=== PATIENT | female | born 1960 | race Caucasian/White ===

== ENCOUNTER 2019-01-16 13:11 | Emergency (ER) | payer MEDICARE, MEDICAID ==
[~2019-01-16] VITALS: Ht 167.6 cm; Wt 76.3 kg
[2019-01-16 13:25] VITALS: BP 111/77
[2019-01-16] MEDS ORDERED: OXYcodone/APAP 10/325MG TABLET ONE (13:50)
[2019-01-16] MEDS ORDERED: OXYcodone/APAP 10/325MG TABLET PO ONE (14:00)
== END 2019-01-16 13:57 | disposition home or self-care (01) ==
LOC: ED 13:40
DX: R00.1 Bradycardia, unspecified (principal); Z76.0 Encounter for issue of repeat prescription; F43.10 Post-traumatic stress disorder, unspecified; F17.210 Nicotine dependence, cigarettes, uncomplicated; Z95.0 Presence of cardiac pacemaker
CPT/HCPCS: 99282

== ENCOUNTER 2019-01-21 04:51 | Inpatient (IN) | payer MEDICARE, MEDICAID ==
[~2019-01-21] VITALS: Ht 167.6 cm; Wt 83.0 kg
[2019-01-21] MEDS ORDERED: HYDROmorphone 1 MG/ML, 1ML VIAL ONE (05:28)
[2019-01-21] MEDS ORDERED: ONDANSETRON 2MG/ML, 2ML ONE (05:28)
[2019-01-21] MEDS ORDERED: HYDROmorphone 1 MG/ML, 1ML INJ IV ONE (05:30)
[2019-01-21] MEDS ORDERED: SODIUM CHLORIDE FLUSH 10ML SYR IVF ONE (05:30)
[2019-01-21] MEDS ORDERED: ONDANSETRON 2MG/ML, 2ML IVPush ONE (05:30)
[2019-01-21 05:35] LABS: BASOPHILS # (AUTO) 0.04 x10^3/uL (0-0.1); BASOPHILS % (AUTO) 1 % (0-1); EOSINOPHILS # (AUTO) 0.16 x10^3/uL (0-0.4); EOSINOPHILS % (AUTO) 3 % (1-7); LYMPHOCYTES # (AUTO) 1.29 x10^3/uL (1-3.4); LYMPHOCYTES % (AUTO) 24 % (22-44); MD NO; MEAN CORPUSCULAR HEMOGLOBIN 30.7 pg (27.0-34.8); MEAN CORPUSCULAR HGB CONC 33.2 g/dL (32.4-35.8); MEAN CORPUSCULAR VOLUME 92.5 fL (80-100); MEAN PLATELET VOLUME 9.2 fL (7.4-10.4); MONOCYTES # (AUTO) 0.36 x10^3/uL (0.2-0.8); MONOCYTES % (AUTO) 7 % (2-9); NEUTROPHILS # (AUTO) 3.52 x10^3/uL (1.8-6.8); NEUTROPHILS % (AUTO) 66 % (42-75); PLATELET COUNT 136 x10^3/uL (130-400); RED BLOOD COUNT 4.79 x10^6/uL (3.82-5.3)
[2019-01-21 05:45] LABS: ALANINE AMINOTRANSFERASE 23 U/L (12-78); ALBUMIN 3.8 g/dL (3.4-5.0); ANION GAP 2 mmol/L (5-15); CALCIUM 9.1 mg/dL (8.5-10.1); CHLORIDE 107 mmol/L (98-107); CREATININE 1.03 mg/dL (0.55-1.02)
[2019-01-21 05:49] LABS: ALKALINE PHOSPHATASE 62 U/L (45-117); BILIRUBIN,TOTAL 0.6 mg/dL (0.2-1.0); TOTAL PROTEIN 7.9 g/dL (6.4-8.2); TROPONIN I 0.077 ng/mL (0.000-0.045)
--- NOTE | 2019-01-21 06:13 | NUR ---
PT REQUESTING MORE "RELIEF MEDICINE". PA INFORMED.
[2019-01-21] MEDS ORDERED: ASPIRIN 81 MG TABLET CHEW PO ONE (06:30)
[2019-01-21] MEDS ORDERED: MORPHINE SULFATE 4 MG/ML, 1ML IVPush ONE (06:30)
[2019-01-21] MEDS ORDERED: ASPIRIN 81 MG TABLET CHEW ONE (06:37)
[2019-01-21] MEDS ORDERED: MORPHINE SULFATE 4 MG/ML, 1ML ONE (06:37)
--- NOTE | 2019-01-21 06:41 | NUR ---
PT MEDICATED PER MAR. AWAITING ADMIT BED
[2019-01-21] MEDS ORDERED: THC PO (06:42)
[2019-01-21] MEDS ORDERED: CLON1TAB PO (06:42)
[2019-01-21] MEDS ORDERED: METH40TA3 PO (06:42)
--- NOTE | 2019-01-21 06:52 | NUR ---
REPORT RECEIVED, CARE ASSUMED
--- NOTE | 2019-01-21 07:33 | NUR ---
REPORT TO RUDI HAYWOOD. POC DISCUSSED.
[2019-01-21] MEDS ORDERED: ONDANSETRON ODT 4 MG PO PRN (08:30)
[2019-01-21] MEDS ORDERED: LACTATED RINGERS 1,000 ML IV SCH (08:30)
[2019-01-21] MEDS ORDERED: ACETAMINOPHEN 325 MG TABLET PO PRN ×2 (08:30→14:30)
[2019-01-21] MEDS ORDERED: ONDANSETRON 2MG/ML, 2ML IVPush PRN (08:30)
[2019-01-21 08:40] VITALS: BP 119/77
[2019-01-21] MEDS: METHADONE INTENSOL 10 MG/ML ORAL CONC PO SCH (10:13)
[2019-01-21] MEDS ORDERED: SODIUM CHLORIDE 0.9% 1,000 ML IV SCH (12:00)
[2019-01-21] MEDS ORDERED: MIDAZOLAM 1 MG/ML, 5ML ONE (12:57)
[2019-01-21] MEDS ORDERED: LIDOCAINE 2%, 20ML ONE (12:57)
[2019-01-21] MEDS ORDERED: FENTANYL PF 100 MCG/2ML ONE (12:57)
[2019-01-21] MEDS ORDERED: VANCOMYCIN 500 MG ONE ×2 (12:58→13:03)
[2019-01-21] MEDS ORDERED: VANCOMYCIN PMX 1GM/200ML 200 ML ONE (12:58)
[2019-01-21] MEDS ORDERED: HOLD MEDICATION MC PRN (14:30)
[2019-01-21 15:07] VITALS: BP 110/57
[2019-01-21] MEDS: HYDROcodone/APAP 5/325 TABLET PO PRN (17:51)
[2019-01-21 20:35] VITALS: BP 95/61
[2019-01-21] MEDS ORDERED: SIMVASTATIN 40 MG TABLET PO SCH (21:00)
[2019-01-21] MEDS: SODIUM CHLORIDE FLUSH 10ML SYR IVF SCH (21:53)
[2019-01-22] MEDS: HYDROcodone/APAP 5/325 TABLET PO PRN ×2 (00:28→05:23)
[2019-01-22] MEDS ORDERED: VANCOMYCIN PMX 1GM/200ML 200 ML IVPB ONE (01:00)
[2019-01-22 01:54] VITALS: BP 93/68
[2019-01-22 05:25] LABS: BASOPHILS # (AUTO) 0.03 x10^3/uL (0-0.1); BASOPHILS % (AUTO) 1 % (0-1); EOSINOPHILS # (AUTO) 0.21 x10^3/uL (0-0.4); EOSINOPHILS % (AUTO) 4 % (1-7); LYMPHOCYTES # (AUTO) 1.51 x10^3/uL (1-3.4); LYMPHOCYTES % (AUTO) 29 % (22-44); MD NO; MEAN CORPUSCULAR HEMOGLOBIN 30.8 pg (27.0-34.8); MEAN CORPUSCULAR HGB CONC 33.6 g/dL (32.4-35.8); MEAN CORPUSCULAR VOLUME 91.7 fL (80-100); MEAN PLATELET VOLUME 9.4 fL (7.4-10.4); MONOCYTES # (AUTO) 0.43 x10^3/uL (0.2-0.8); MONOCYTES % (AUTO) 8 % (2-9); NEUTROPHILS # (AUTO) 3.06 x10^3/uL (1.8-6.8); NEUTROPHILS % (AUTO) 59 % (42-75); PLATELET COUNT 138 x10^3/uL (130-400); RED BLOOD COUNT 4.45 x10^6/uL (3.82-5.3); RED CELL DISTRIBUTION WIDTH 13.9 % (9.6-15.2)
[2019-01-22 05:35] LABS: ANION GAP 4 mmol/L (5-15); CALCIUM 8.7 mg/dL (8.5-10.1); CHLORIDE 108 mmol/L (98-107)
[2019-01-22 05:37] LABS: CREATININE 0.87 mg/dL (0.55-1.02)
[2019-01-22 07:35] VITALS: BP 124/76
[2019-01-22] MEDS: SODIUM CHLORIDE FLUSH 10ML SYR IVF SCH (08:32)
[2019-01-22] MEDS: METHADONE INTENSOL 10 MG/ML ORAL CONC PO SCH (08:32)
[2019-01-22] MEDS ORDERED: SIMV40TA3 PO (08:54)
== END 2019-01-22 10:36 | disposition home or self-care (01) | DRG 260 ==
LOC: ED 05:50 → EDIP 06:18 → 5SO 07:57 → DCLOUNGE 01-22 10:28
PROVIDERS: ADMIT Family Medicine; ATTEND Internal Medicine
PROC: 02WA3MZ Revision of Cardiac Lead in Heart, Percutaneous Approach (ICD-10-PCS; principal; 2019-01-21)
PROC: 0JWT3PZ Revision of Cardiac Rhythm Related Device in Trunk Subcutaneous Tissue and Fascia, Percutaneous Approach (ICD-10-PCS; 2019-01-21)
DX: T82.120A Displacement of cardiac electrode, initial encounter (principal); N17.0 Acute kidney failure with tubular necrosis; E78.5 Hyperlipidemia, unspecified; F12.90 Cannabis use, unspecified, uncomplicated; F17.200 Nicotine dependence, unspecified, uncomplicated; F43.10 Post-traumatic stress disorder, unspecified; G89.4 Chronic pain syndrome; Z79.891 Long term (current) use of opiate analgesic; Z82.49 Family history of ischemic heart disease and other diseases of the circulatory system; Z95.0 Presence of cardiac pacemaker; Z88.0 Allergy status to penicillin; Y83.1 Surgical operation with implant of artificial internal device as the cause of abnormal reaction of the patient, or of later complication, without mention of misadventure at the time of the procedure; Y71.2 Prosthetic and other implants, materials and accessory cardiovascular devices associated with adverse incidents
CPT/HCPCS: 33215; 36415; 71045; 80048; 80053; 84484; 85025; 93005; 93308; 93321; 93325; 96374; 96375; 99156; 99157; 99285; G0378; J1170; J2250; J2405; J3010; J3370; J2270; J7030; J7120

== ENCOUNTER 2019-02-12 10:34 | Emergency (ER) | payer MEDICARE, MEDICAID ==
[~2019-02-12] VITALS: Ht 167.6 cm; Wt 74.5 kg
[~2019-02-12 10:34] MED LIST: CLON1TAB PO; METH40TA3 PO; SIMV40TA3 PO; THC PO
[2019-02-12 10:37] VITALS: BP 140/81
--- NOTE | 2019-02-12 11:14 | NUR ---
PT LEFT AMA DUE TO "ANXIETY". SHE SAID SHE WILL GO TO [facility]
== END 2019-02-12 11:16 | disposition left against medical advice (07) ==
LOC: ED 11:10
DX: F41.9 Anxiety disorder, unspecified (principal); F43.10 Post-traumatic stress disorder, unspecified; F17.200 Nicotine dependence, unspecified, uncomplicated; Z76.0 Encounter for issue of repeat prescription; Z95.0 Presence of cardiac pacemaker
CPT/HCPCS: 93005; 99283

== ENCOUNTER 2019-02-25 13:35 | Emergency (ER) | payer MEDICARE, MEDICAID ==
[~2019-02-25] VITALS: Ht 167.6 cm; Wt 73.0 kg
--- NOTE | 2019-02-25 14:41 | NUR ---
TO LUCY FROM LOBBY
--- NOTE | 2019-02-25 14:51 | NUR ---
THIS IS A 58 YO FEMALE COMING IN FOR HEADACHE, EXHAUSTION, LEFT SIDED PAIN WITH CRAMPING AND PAIN LOCATED IN LEFT ARMPIT AFTER PACEMAKER PLACED 3 WEEKS AGO, C/O SOB WITH EXERTION. DENIES LIGHTHEADED OR DIZZINESS, BUT IS CONFUSED MORE THAN HER NORM PER PATIENT STATEMENT. PATIENT PLACED ON CARDIAC MONTIOR, PACED BEAT NOTED AT 61 BPM. PATIENT STATES "IT WS PLACED FOR BRADYCARDIA". CONTINUOUS SPO2 AT 96%, CYCLE BP Q1HR. CALL LIGHT IN REACH. DENIES NEEDS AT THIS TIME.
[2019-02-25 15:23] LABS: BASOPHILS # (AUTO) 0.04 x10^3/uL (0-0.1); BASOPHILS % (AUTO) 1 % (0-1); EOSINOPHILS % (AUTO) 3 % (1-7); LYMPHOCYTES # (AUTO) 2.24 x10^3/uL (1-3.4); LYMPHOCYTES % (AUTO) 39 % (22-44); MD NO; MEAN CORPUSCULAR HEMOGLOBIN 30.9 pg (27.0-34.8); MEAN CORPUSCULAR HGB CONC 33.2 g/dL (32.4-35.8); MEAN PLATELET VOLUME 9.6 fL (7.4-10.4); MONOCYTES # (AUTO) 0.36 x10^3/uL (0.2-0.8); MONOCYTES % (AUTO) 6 % (2-9); NEUTROPHILS % (AUTO) 51 % (42-75); PLATELET COUNT 152 x10^3/uL (130-400); RED BLOOD COUNT 4.32 x10^6/uL (3.82-5.3); RED CELL DISTRIBUTION WIDTH 13.5 % (9.6-15.2)
[2019-02-25 15:28] LABS: ALANINE AMINOTRANSFERASE 21 U/L (12-78); ALBUMIN 3.6 g/dL (3.4-5.0); ANION GAP 3 mmol/L (5-15); CALCIUM 8.6 mg/dL (8.5-10.1); CHLORIDE 111 mmol/L (98-107); CREATININE 0.91 mg/dL (0.55-1.02)
[2019-02-25] MEDS ORDERED: ACETAMINOPHEN 500 MG TABLET PO ONE (15:30)
[2019-02-25 15:32] LABS: ALKALINE PHOSPHATASE 66 U/L (45-117); BILIRUBIN,TOTAL 0.3 mg/dL (0.2-1.0); TOTAL PROTEIN 7.2 g/dL (6.4-8.2); TROPONIN I < 0.015 ng/mL (0.000-0.045)
[2019-02-25 15:47] LABS: MICROSCOPIC NOT IND
[2019-02-25 15:47] LABS: INTERNATIONAL NORMALIZED RATIO 1.01 (0.93-1.1); PROTHROMBIN TIME 10.6 Seconds (9.6-11.5)
[2019-02-25 15:55] LABS: CULTURE INDICATED? NO
--- NOTE | 2019-02-25 16:00 | NUR ---
PATIENT RESTING, RESPIRATIONS EVEN AND UNLABORED, CALL LIGHT IN REACH, ALL MONITORING IN PLEACE, DENIES NEEDS AT THIS TIME.
[2019-02-25 16:07] VITALS: BP 124/67
--- NOTE | 2019-02-25 16:40 | NUR ---
PATIENT MEDICATED PER EMAR, TOLERATED WELL.
[2019-02-25] MEDS ORDERED: ACETAMINOPHEN 500 MG TABLET ONE (16:42)
--- NOTE | 2019-02-25 17:18 | NUR ---
PATIENT REFUSED TO WAIT FOR DISCHARGE PAPERWORK, LEFT WITHOUT PAPERS.
== END 2019-02-25 17:28 | disposition home or self-care (01) ==
LOC: ED 17:26
DX: R07.89 Other chest pain (principal); R51 Headache; M54.2 Cervicalgia; R06.02 Shortness of breath; F17.200 Nicotine dependence, unspecified, uncomplicated; Z95.0 Presence of cardiac pacemaker
CPT/HCPCS: 36415; 71045; 80053; 81003; 83880; 84484; 85025; 85610; 85730; 93005; 99284

== ENCOUNTER 2019-05-06 10:56 | Emergency (ER) | payer MEDICAID, MEDICARE ==
[~2019-05-06] VITALS: Ht 167.6 cm; Wt 76.0 kg
[~2019-05-06 10:56] MED LIST changes: +SIMV40TA20 PO; -SIMV40TA3 PO
[2019-05-06 11:56] VITALS: BP 100/52
[2019-05-06] MEDS ORDERED: ACETAMINOPHEN 325 MG TABLET ONE (12:10)
[2019-05-06] MEDS ORDERED: ACETAMINOPHEN 325 MG TABLET PO ONE (12:30)
[2019-05-06 12:34] LABS: RAPID INFLUENZA A Negative (Negative); RAPID INFLUENZA B Negative (Negative)
== END 2019-05-06 14:12 | disposition home or self-care (01) ==
LOC: ED 13:45
DX: J02.0 Streptococcal pharyngitis (principal); F17.200 Nicotine dependence, unspecified, uncomplicated; R00.1 Bradycardia, unspecified; Z95.0 Presence of cardiac pacemaker
CPT/HCPCS: 87400; 87880; 99283

== ENCOUNTER 2020-01-22 09:03 | Emergency (ER) | payer MEDICARE, MEDICAID ==
[~2020-01-22] VITALS: Ht 167.6 cm; Wt 87.6 kg
--- NOTE | 2020-01-22 09:37 | NUR ---
PT IN BED, VSS, SR ON MONITOR,
[2020-01-22 10:11] LABS: BASOPHILS % (AUTO) 1 % (0-1); EOSINOPHILS % (AUTO) 3 % (1-7); LYMPHOCYTES % (AUTO) 32 % (22-44); MEAN CORPUSCULAR HGB CONC 33.9 g/dL (32.4-35.8); MEAN PLATELET VOLUME 9.7 fL (7.4-10.4); MONOCYTES % (AUTO) 7 % (2-9); NEUTROPHILS % (AUTO) 58 % (42-75); PLATELET COUNT 155 x10^3/uL (130-400); RED CELL DISTRIBUTION WIDTH 13.4 % (9.6-15.2)
[2020-01-22 10:13] LABS: ALBUMIN 3.7 g/dL (3.4-5.0); ANION GAP 6 mmol/L (5-15); CALCIUM 8.9 mg/dL (8.5-10.1); CHLORIDE 112 mmol/L (98-107)
[2020-01-22 10:15] LABS: MD NO
[2020-01-22 10:26] LABS: TROPONIN I 0.027 ng/mL (0.000-0.045)
[2020-01-22 11:22] VITALS: BP 127/70
== END 2020-01-22 11:32 | disposition home or self-care (01) ==
LOC: ED 09:47
DX: J44.1 Chronic obstructive pulmonary disease with (acute) exacerbation (principal); F41.1 Generalized anxiety disorder; I50.9 Heart failure, unspecified; R00.2 Palpitations; R07.9 Chest pain, unspecified; F17.200 Nicotine dependence, unspecified, uncomplicated; Z95.0 Presence of cardiac pacemaker
CPT/HCPCS: 36415; 71045; 80048; 82040; 83880; 84443; 84484; 85025; 93005; 99285

== ENCOUNTER 2020-01-25 15:11 | Emergency (ER) | payer MEDICARE, MEDICAID ==
[~2020-01-25] VITALS: Ht 167.6 cm; Wt 85.6 kg
--- NOTE | 2020-01-25 15:44 | NUR ---
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
[2020-01-25] MEDS ORDERED: ASPIRIN 81 MG TABLET CHEW PO ONE (16:00)
[2020-01-25 16:24] LABS: BASOPHILS % (AUTO) 1 % (0-1); EOSINOPHILS % (AUTO) 2 % (1-7); LYMPHOCYTES % (AUTO) 35 % (22-44); MEAN CORPUSCULAR HEMOGLOBIN 30.1 pg (27.0-34.8); MEAN PLATELET VOLUME 9.6 fL (7.4-10.4); MONOCYTES % (AUTO) 7 % (2-9); NEUTROPHILS % (AUTO) 55 % (42-75); PLATELET COUNT 170 x10^3/uL (130-400); RED BLOOD COUNT 4.94 x10^6/uL (3.82-5.3); RED CELL DISTRIBUTION WIDTH 13.4 % (9.6-15.2)
[2020-01-25 16:27] LABS: ALANINE AMINOTRANSFERASE 20 U/L (12-78); ALBUMIN 3.8 g/dL (3.4-5.0); ANION GAP 5 mmol/L (5-15); CALCIUM 8.6 mg/dL (8.5-10.1); CHLORIDE 105 mmol/L (98-107); CREATININE 1.12 mg/dL (0.55-1.02)
[2020-01-25 16:31] LABS: ALKALINE PHOSPHATASE 68 U/L (45-117); BILIRUBIN,TOTAL 0.5 mg/dL (0.2-1.0); TOTAL PROTEIN 7.7 g/dL (6.4-8.2); TROPONIN I < 0.015 ng/mL (0.000-0.045)
[2020-01-25 16:34] LABS: MD NO
--- NOTE | 2020-01-25 16:34 | NUR ---
CONTACT WITH PT, 59 YR OLD FEMALE HERE WITH C/O "I'M HAVING SOME HEART PAIN. I CAME IN ON THURSDAY, BECAUSE I THOUGHT MY PACEMAKER NEEDED TWEEKED. THEY FOUND SOME WATER ON MY HEART. THEY GAVE ME SOME LASIX, BUT ITS NOT GETTING BETTER." PT PLACED ON MONITOR, SR PER MONITOR, AUTO BP AND PULSE OX. PT STATES "NOT SLEEPING WELL, HAVE TO SLEEP SITTING UP"
[2020-01-25] MEDS ORDERED: ASPIRIN 81 MG TABLET CHEW ONE (16:46)
--- NOTE | 2020-01-25 17:02 | NUR ---
DR STEVENS AT BEDSIDE TO PEÑA PT
--- NOTE | 2020-01-25 17:31 | NUR ---
PT CONT IN NO ACUTE DISTRESS. SR PER MONITOR. NO IV TO DC. REVIEWED DC INSTRUCTIONS WITH PT, UNDERSTANDING VERBZLIZED. PT LEFT AMB.
[2020-01-25 17:34] VITALS: BP 122/41
== END 2020-01-25 17:36 | disposition home or self-care (01) ==
LOC: ED 17:30
DX: R07.89 Other chest pain (principal); I50.9 Heart failure, unspecified; J44.9 Chronic obstructive pulmonary disease, unspecified
CPT/HCPCS: 36415; 71045; 80053; 83880; 84484; 85025; 93005; 99285

== ENCOUNTER 2020-04-17 06:10 | Emergency (ER) | payer MEDICARE, MEDICAID ==
[~2020-04-17] VITALS: Ht 167.6 cm; Wt 88.0 kg
[2020-04-17] MEDS ORDERED: ONDANSETRON 2MG/ML, 2ML ONE (06:22)
[2020-04-17] MEDS ORDERED: MORPHINE SULFATE 4 MG/ML, 1ML ONE ×2 (06:22→07:42)
[2020-04-17] MEDS ORDERED: SODIUM CHLORIDE FLUSH 10ML SYR IVF ONE (06:30)
[2020-04-17] MEDS ORDERED: ONDANSETRON 2MG/ML, 2ML IVPush ONE (06:30)
[2020-04-17] MEDS: MORPHINE SULFATE 4 MG/ML, 1ML IVPush PRN ×2 (06:37→07:44)
--- NOTE | 2020-04-17 06:48 | NUR ---
Bedside report from CHASTITY Chiu.
[2020-04-17 07:11] LABS: BASOPHILS % (AUTO) 0 % (0-1); EOSINOPHILS % (AUTO) 0 % (1-7); LYMPHOCYTES % (AUTO) 8 % (22-44); MEAN CORPUSCULAR HEMOGLOBIN 29.9 pg (27.0-34.8); MEAN CORPUSCULAR HGB CONC 33.8 g/dL (32.4-35.8); MEAN PLATELET VOLUME 10.6 fL (7.4-10.4); MONOCYTES % (AUTO) 4 % (2-9); NEUTROPHILS % (AUTO) 88 % (42-75); PLATELET COUNT 183 x10^3/uL (130-400); RED BLOOD COUNT 4.62 x10^6/uL (3.82-5.3); RED CELL DISTRIBUTION WIDTH 13.7 % (9.6-15.2)
[2020-04-17 07:12] LABS: MD NO
[2020-04-17 07:18] LABS: ALANINE AMINOTRANSFERASE 32 U/L (12-78); ALBUMIN 3.9 g/dL (3.4-5.0); ANION GAP 11 mmol/L (5-15); CALCIUM 8.9 mg/dL (8.5-10.1); CHLORIDE 108 mmol/L (98-107); CREATININE 1.13 mg/dL (0.55-1.02)
[2020-04-17 07:21] LABS: ALKALINE PHOSPHATASE 62 U/L (45-117); BILIRUBIN,TOTAL 0.6 mg/dL (0.2-1.0); TOTAL PROTEIN 7.5 g/dL (6.4-8.2)
[2020-04-17 07:24] LABS: MICROSCOPIC INDICATED
--- NOTE | 2020-04-17 08:04 | NUR ---
Negra, daughter, okay to update. .
--- NOTE | 2020-04-17 08:21 | NUR ---
Pt to imaging.
--- NOTE | 2020-04-17 09:09 | NUR ---
Pt ambulatory to bathroom with steady gait. Sleeping upon this RN's arrival to room.
[2020-04-17] MEDS ORDERED: KETOROLAC 30 MG/1 ML ONE (09:12)
[2020-04-17] MEDS ORDERED: KETOROLAC 30 MG/1 ML IVPush ONE (09:30)
[2020-04-17 10:04] VITALS: BP 143/56
== END 2020-04-17 10:08 | disposition home or self-care (01) ==
LOC: ED 07:35
DX: N13.2 Hydronephrosis with renal and ureteral calculous obstruction (principal); I50.9 Heart failure, unspecified; J44.9 Chronic obstructive pulmonary disease, unspecified; Z88.0 Allergy status to penicillin
CPT/HCPCS: 36415; 74176; 80053; 81001; 85025; 96374; 96375; 96376; 99284; J1885; J2270; J2405

== ENCOUNTER 2020-04-20 17:50 | Emergency (ER) | payer MEDICARE, MEDICAID ==
[~2020-04-20] VITALS: Ht 162.6 cm; Wt 85.3 kg
--- NOTE | 2020-04-20 18:06 | NUR ---
PATIENT WALKED BACK FROM TRIAGE WITH CHIEF C/O KIDNEY STONE. PER PATIENT SHE'S BEEN TRYING TO PASS A KIDNEY STONE FOR 3 DAYS, HOWEVER, SHE IS UNABLE TO DO SO. PER PATIENT "IT IS BECOMING REALLY PAINFUL, AND I HAVEN'T BEEN SLEEPING." PATIENT ALSO REPORTS DIFFICULTY URINATING.
--- NOTE | 2020-04-20 18:27 | NUR ---
PATIENT AMBULATED TO BATHROOM WITH STEADY GAIT, URINE SAMPLE COLLECTED.
[2020-04-20] MEDS ORDERED: KETOROLAC 30 MG/1 ML IM ONE ×2 (19:00→19:30)
[2020-04-20] MEDS ORDERED: KETOROLAC 30 MG/1 ML ONE (19:08)
[2020-04-20 19:12] LABS: MICROSCOPIC AUTO
--- NOTE | 2020-04-20 19:12 | NUR ---
RECORDS SPECIALIST PER MAR.
--- NOTE | 2020-04-20 19:50 | NUR ---
PT GOING TO US
[2020-04-20 19:52] LABS: BASOPHILS % (AUTO) 1 % (0-1); EOSINOPHILS % (AUTO) 3 % (1-7); LYMPHOCYTES % (AUTO) 30 % (22-44); MEAN CORPUSCULAR HEMOGLOBIN 29.9 pg (27.0-34.8); MEAN CORPUSCULAR HGB CONC 34.3 g/dL (32.4-35.8); MEAN PLATELET VOLUME 9.6 fL (7.4-10.4); MONOCYTES % (AUTO) 8 % (2-9); NEUTROPHILS % (AUTO) 59 % (42-75); PLATELET COUNT 171 x10^3/uL (130-400); RED CELL DISTRIBUTION WIDTH 13.9 % (9.6-15.2)
[2020-04-20 19:54] LABS: MD NO
[2020-04-20 20:00] LABS: ALANINE AMINOTRANSFERASE 44 U/L (12-78); ALBUMIN 3.1 g/dL (3.4-5.0); ANION GAP 7 mmol/L (5-15); CALCIUM 8.3 mg/dL (8.5-10.1); CHLORIDE 109 mmol/L (98-107); CREATININE 0.87 mg/dL (0.55-1.02)
[2020-04-20 20:03] LABS: ALKALINE PHOSPHATASE 58 U/L (45-117); BILIRUBIN,TOTAL 0.4 mg/dL (0.2-1.0); TOTAL PROTEIN 6.7 g/dL (6.4-8.2)
[2020-04-20 20:29] VITALS: BP 115/58
--- NOTE | 2020-04-20 20:29 | NUR ---
PT BACK FROM IMAGING
--- NOTE | 2020-04-20 20:56 | NUR ---
ALL RESULTS ARE BACK AT THIS TIME. CHART UP FOR RECHECK.
[2020-04-20] MEDS ORDERED: CEFTRIAXONE PMX 1GM/50ML 50 ML IV ONE (21:00)
[2020-04-20] MEDS ORDERED: CEFTRIAXONE 1,000 MG ONE (21:04)
--- NOTE | 2020-04-20 21:10 | NUR ---
MEDS ADMIN PER APR.
[2020-04-20] MEDS ORDERED: CEFTRIAXONE 1,000 MG IM ONE (21:30)
[2020-04-20] MEDS ORDERED: POTASSIUM CHLORIDE 20 MEQ TAB.ER.PRT ONE (21:35)
[2020-04-20] MEDS ORDERED: POTASSIUM CHLORIDE 20 MEQ TAB.ER.PRT PO ONE (22:00)
== END 2020-04-20 22:10 | disposition home or self-care (01) ==
LOC: ED 19:22
DX: N10 Acute pyelonephritis (principal); E87.6 Hypokalemia; R10.9 Unspecified abdominal pain; R11.0 Nausea; I50.9 Heart failure, unspecified; J44.9 Chronic obstructive pulmonary disease, unspecified
CPT/HCPCS: 36415; 74176; 76770; 80053; 81001; 85025; 87086; 96372; 99285; J0696; J1885

== ENCOUNTER 2020-11-08 08:28 | Emergency (ER) | payer MEDICARE ==
[~2020-11-08] VITALS: Ht 167.6 cm; Wt 86.6 kg
--- NOTE | 2020-11-08 10:21 | NUR ---
CRT: PT TO ROOM FROM LOBBY
[2020-11-08] MEDS ORDERED: HYDROmorphone 2 MG/ML, 1ML ONE (10:51)
[2020-11-08] MEDS ORDERED: SODIUM CHLORIDE 0.9% 1,000ML IV ONE (11:00)
[2020-11-08] MEDS ORDERED: SODIUM CHLORIDE FLUSH 10ML SYR IVF ONE (11:00)
[2020-11-08] MEDS ORDERED: HYDROmorphone 1 MG/ML, 1ML INJ IV ONE (11:00)
--- NOTE | 2020-11-08 11:15 | NUR ---
IV started after x2 sticks, unable to obtain blood lab here for specimen. Urine sent to lab. Sent to CT via gurney. Medicated rails up x2, RR equal and unlabored.
[2020-11-08 11:30] LABS: ALANINE AMINOTRANSFERASE 13 U/L (12-78); ALBUMIN 3.2 g/dL (3.4-5.0); ANION GAP 3 mmol/L (5-15); CALCIUM 8.6 mg/dL (8.5-10.1); CHLORIDE 111 mmol/L (98-107); CREATININE 0.83 mg/dL (0.55-1.02)
[2020-11-08 11:32] LABS: ALKALINE PHOSPHATASE 66 U/L (45-117); BILIRUBIN,TOTAL 0.3 mg/dL (0.2-1.0); TOTAL PROTEIN 6.9 g/dL (6.4-8.2)
[2020-11-08 11:33] LABS: MICROSCOPIC NOT IND
[2020-11-08 11:35] LABS: BASOPHILS % (AUTO) 1 % (0-1); EOSINOPHILS % (AUTO) 3 % (1-7); LYMPHOCYTES % (AUTO) 37 % (22-44); MEAN CORPUSCULAR HEMOGLOBIN 30.4 pg (27.0-34.8); MEAN CORPUSCULAR HGB CONC 34.1 g/dL (32.4-35.8); MEAN PLATELET VOLUME 9.2 fL (7.4-10.4); MONOCYTES % (AUTO) 7 % (2-9); NEUTROPHILS % (AUTO) 52 % (42-75); PLATELET COUNT 149 x10^3/uL (130-400); RED BLOOD COUNT 4.37 x10^6/uL (3.82-5.3); RED CELL DISTRIBUTION WIDTH 13.8 % (9.6-15.2)
[2020-11-08 12:34] VITALS: BP 125/71
--- NOTE | 2020-11-08 12:44 | NUR ---
IV DC cath intact, pt waiting for dispo instruct. VSS.
== END 2020-11-08 13:10 | disposition home or self-care (01) ==
LOC: ED 12:00
DX: R10.32 Left lower quadrant pain (principal); F17.200 Nicotine dependence, unspecified, uncomplicated; Z95.0 Presence of cardiac pacemaker; I50.9 Heart failure, unspecified; J44.9 Chronic obstructive pulmonary disease, unspecified; Z87.442 Personal history of urinary calculi
CPT/HCPCS: 36415; 74176; 80053; 81003; 85025; 96374; 99284; J1170; J7030